=== PATIENT | female | born 1950 | race Caucasian/White ===

== ENCOUNTER → 2018-08-06 | Outpatient (CLI) | payer OTHER ==
[~2018-08-06] MED LIST: CYCL10 PO; EZET10-20 PO; GABA300 PO; HYDCHL25 PO; LEVSOD88 PO; META800 PO; METAXALONE800 MG PO; METF500C PO; Maxalt10 MG PO; Norco 7.5-3251 EACH PO; Omeprazole20 M1 PO; SULI150; TRAM50 PO; TRAZ100 PO
== END | disposition home or self-care (01) ==
LOC: LAB SHORT 13:54 → PLD 13:54
DX: D48.5 Neoplasm of uncertain behavior of skin (principal)
CPT/HCPCS: 88305

== ENCOUNTER 2023-07-06 08:13 | Day surgery (SDC) | payer OTHER ==
[~2023-07-06] VITALS: Ht 162.6 cm; Wt 80.5 kg
[2023-07-06] MEDS ORDERED: OMEP20ER PO (08:49)
[2023-07-06] MEDS ORDERED: Maxalt Mlt5 MG SL (08:50)
[2023-07-06 12:08] VITALS: BP 144/89
--- NOTE | 2023-07-06 13:49 | NUR ---
07/06/23 1349 Brandon Velarde IV REMOVED INTACT. SITE WNL.
== END 2023-07-06 13:48 | disposition home or self-care (01) ==
LOC: ORSCSDS 08:13
PROVIDERS: Podiatrist Foot & Ankle Surgery
PROC: 0L8P0ZZ Division of Left Lower Leg Tendon, Open Approach (ICD-10-PCS; principal; 2023-07-06 09:45)
PROC: 0QTM0ZZ Resection of Left Tarsal, Open Approach (ICD-10-PCS; principal; 2023-07-06 09:45)
DX: M76.62 Achilles tendinitis, left leg (principal); I10 Essential (primary) hypertension; G47.33 Obstructive sleep apnea (adult) (pediatric); E03.9 Hypothyroidism, unspecified; Z79.899 Other long term (current) drug therapy
CPT/HCPCS: A9270; C1713; J0171; J0690; J1100; J1885; J2250; J2405; J2704; J2765; J2795; J3010; J7120